=== PATIENT | female | born 1965 | race Caucasian/White ===

== ENCOUNTER → 2020-03-30 | Outpatient (CLI) | payer OTHER ==
--- NOTE | 2020-03-30 10:09 | RADIOLOGY REPORT (SQ) ---
EXAM DESCRIPTION: CT CHEST WITH IMAGES COMPLETED DATE/TIME: 03/30/2020 9:03 am REASON FOR STUDY: C50.411 MALIG NEOPLM OF UPPER-OUTER QUADRANT OF RIGHT FEMALE BREAST C50.411 MALIG NEOPLM OF UPPER-OUTER QUADRANT OF RIGHT FEMALE COMPARISON: None. TECHNIQUE: CT scan of the chest performed using helical scanning technique with dynamic intravenous contrast injection. Images reviewed with lung, soft tissue and bone windows. Reconstructed coronal and sagittal MPR and MIP images reviewed. All images stored on PACS. All CT scanners at this facility use dose modulation, iterative reconstruction, and/or weight based d osing when appropriate to reduce radiation dose to as low as reasonably achievable (ALARA). [facility]: Dose Right [facility]: CareDose [facility]: Dose Right [facility]: Teradose 4D [facility]: Smart Hi-Midia RENAL FUNCTION: GFR 59. RADIATION DOSE: CT Rad equipment meets quality standard of care and radiation dose reduction techniq ues were employed. CTDIvol: 4.5 - 5.9 mGy. DLP: 708 mGy-cm. . LIMITATIONS: None. FINDINGS: LUNGS AND PLEURA: Under image 60, cluster of small nodules measuring up to 4 mm in the rig ht upper lobe abutting the fissure. Image 64, 3 mm ground-glass nodule right upper lobe. Image 65 6 mm ground-glass nodule left upper lobe. Image 88, 5 mm part solid nodule in the middle lobe. No ef fusion. HILAR AND MEDIASTINAL STRUCTURES: No identified masses or abnormal nodes. HEART AND VASCULAR STRUCTURES: No aneurysm or dissection. No central pulmonary emboli. No pericardi al effusion. HARDWARE: None in the chest. UPPER ABDOMEN: See separate report of the CT of the abdomen. THYROID AND OTHER SOFT TISSUES: Right axillary adenopathy, the largest measures 2.4 x 1.8 cm and cont ains a biopsy clip. Right lower outer quadrant breast nodule also containing a marker clip. BONES: No significant finding. OTHER: No other significant finding. IMPRESSION: 1. Right breast mass status post biopsy. Ipsilateral axillary adenopathy. 2. Several small pulmonary nodules, too small to biopsy or characterize by PET-CT. TECHNICAL DOCUMENTATION: JOB ID: [id number] Quality ID # 436: Final reports with documentation of one or more dose reduction techniques (e.g., Au tomated exposure control, adjustment of the mA and/or kV according to patient size, use of iterative reconstruction technique) 2010 [employer]- All Rights Reserved Reading location - IP/workstation name: [email or web address]
--- NOTE | 2020-03-30 10:15 | RADIOLOGY REPORT (SQ) ---
EXAM DESCRIPTION: CT ABD/PELVIS WITH IV ONLY IMAGES COMPLETED DATE/TIME: 03/30/2020 9:03 am REASON FOR STUDY: C50.411 MALIG NEOPLM OF UPPER-OUTER QUADRANT OF RIGHT FEMALE BREAST C50.411 MALIG NEOPLM OF UPPER-OUTER QUADRANT OF RIGHT FEMALE COMPARISON: None. TECHNIQUE: CT scan of the abdomen and pelvis performed using helical scanning technique with dynamic intravenous contrast injection. No oral contrast. Images reviewed with lung, soft tissue, and bone windows. Reconstructed coronal and sagittal MPR images reviewed. Delayed images for evaluation of the urinary system also acquired. All images stored on PACS. All CT scanners at this facility use dose modulation, iterative reconstruction, and/or weight based d osing when appropriate to reduce radiation dose to as low as reasonably achievable (ALARA). [facility]: Dose Right [facility]: CareDose [facility]: Dose Right [facility]: Teradose 4D [facility]: Sonarworks CONTRAST TYPE AND DOSE: contrast/concentration: Isovue 350.00 mmol/ml; Total Contrast Delivered: 66. 0 ml; Total Saline Delivered: 40.0 ml RENAL FUNCTION: GFR 59 RADIATION DOSE: . LIMITATIONS: None. FINDINGS: LOWER CHEST: See separate report of the CT of the chest. LIVER: Normal size. No masses. No dilated ducts. SPLEEN: Normal size. No focal lesions. PANCREAS: No masses. No significant calcifications. No adjacent inflammation or peripancreatic fluid collections. Pancreatic duct not dilated. GALLBLADDER: No identified stones by CT criteria. No inflammatory changes to suggest cholecystitis. ADRENAL GLANDS: No significant masses or asymmetry. RIGHT KIDNEY AND URETER: No solid masses. No significant calcifications. No hydronephrosis or hyd roureter. LEFT KIDNEY AND URETER: No solid masses. No significant calcifications. No hydronephrosis or hydr oureter. AORTA AND VESSELS: No aneurysm. No dissection. Renal arteries, SMA, celiac without stenosis. RETROPERITONEUM: No retroperitoneal adenopathy, hemorrhage or masses. BOWEL AND PERITONEAL CAVITY: No masses or inflammatory changes. No free fluid or peritoneal masses. APPENDIX: Normal. PELVIS: No mass. No free fluid. Normal bladder. ABDOMINAL WALL: No masses. No hernias. BONES: No significant or acute findings. OTHER: No other significant finding. IMPRESSION: No evidence of metastatic disease. TECHNICAL DOCUMENTATION: JOB ID: [id number] Quality ID # 436: Final reports with documentation of one or more dose reduction techniques (e.g., Au tomated exposure control, adjustment of the mA and/or kV according to patient size, use of iterative reconstruction technique) 2010 [employer]- All Rights Reserved Reading location - IP/workstation name: [email or web address]
--- NOTE | 2020-03-30 12:35 | RADIOLOGY REPORT (SQ) ---
EXAM DESCRIPTION: NM WHOLE BODY BONE SCAN IMAGES COMPLETED DATE/TIME: 03/30/2020 11:56 am REASON FOR STUDY: C50.411 MALIG NEOPLM OF UPPER-OUTER QUADRANT OF RIGHT FEMALE BREAST C50.411 MALIG NEOPLM OF UPPER-OUTER QUADRANT OF RIGHT FEMALE COMPARISON: CT the chest abdomen and pelvis 03/30/2020 RADIONUCLIDE AND DOSE: 20 millicuries Tc99m MDP. The route of agent administration: Intravenous. ADDITIONAL DRUGS AND DOSES: None. TECHNIQUE: Routine delayed images at 3 hours post radionuclide injection acquired of the bony skelet on including anterior and posterior whole-body projections and additional focused images as needed. LIMITATIONS: None. FINDINGS: BONES: Normal visualization without areas of photopenia or increased bony uptake of radiop harmaceutical. KIDNEYS: Symmetric excretion without obstruction. OTHER: No other significant finding. IMPRESSION: NORMAL BONE SCAN. COMMENT: Quality measure 147: Current bone scan is compared with any available plain radiographs, p rior bone scans, and CT/MRI. TECHNICAL DOCUMENTATION: JOB ID: [id number] 2010 [employer]- All Rights Reserved Reading location - IP/workstation name: [email or web address]
== END ==
LOC: RAD 08:27
PROVIDERS: ATTEND Internal Medicine Hematology & Oncology
DX: C50.411 Malignant neoplasm of upper-outer quadrant of right female breast (principal)
CPT/HCPCS: 78306; 71260; 74177; A9503; Q9969

== ENCOUNTER 2020-04-28 05:26 | Day surgery (SDC) | payer OTHER ==
[2020-04-25 11:53] LABS: HEMOGLOBIN 13.4 g/dL (12.0-15.5); MEAN CORPUSCULAR HEMOGLOBIN 30.1 pg (27.0-33.4); MEAN CORPUSCULAR HGB CONC 34.2 g/dL (32.0-36.0); MEAN CORPUSCULAR VOLUME 88 fl (80-97); PLATELET COUNT 261 10^3/uL (150-450); RED BLOOD COUNT 4.44 10^6/uL (3.72-5.28); RED CELL DISTRIBUTION WIDTH 13.1 % (11.5-14.0); WHITE BLOOD COUNT 3.9 10^3/uL (4.0-10.5)
--- NOTE | 2020-04-25 15:10 | RADIOLOGY REPORT (SQ) ---
EXAM DESCRIPTION: CHEST SINGLE VIEW IMAGES COMPLETED DATE/TIME: 04/25/2020 11:30 am REASON FOR STUDY: MALIG NEOPLM OF UPPER-OUTER QUADRANT OF RIGHT FEMALE BREAST COMPARISON: None. EXAM PARAMETERS: NUMBER OF VIEWS: One view. TECHNIQUE: Single frontal radiographic view of the chest acquired. RADIATION DOSE: NA LIMITATIONS: None. FINDINGS: LUNGS AND PLEURA: No opacities, masses or pneumothorax. No pleural effusion. MEDIASTINUM AND HILAR STRUCTURES: No masses. Contour normal. HEART AND VASCULAR STRUCTURES: Heart normal in size. Normal vasculature. BONES: No acute findings. HARDWARE: None in the chest. OTHER: No other significant finding. IMPRESSION: NO ACUTE RADIOGRAPHIC FINDING IN THE CHEST. TECHNICAL DOCUMENTATION: JOB ID: [id number] 2010 [employer]- All Rights Reserved Reading location - IP/workstation name: [email or web address]
[~2020-04-28 05:26] MED LIST: CEFAZOLIN 1 GM/D5W RTU 1 GM/50 ML RTUPB IV ONE
[2020-04-28] MEDS ORDERED: LIDOCAINE 0.5% INJ-PF (5 MG/ML) 50 ML SDV ONE (06:17)
[2020-04-28] MEDS ORDERED: MIDAZOLAM 2 MG/2 ML INJ ONE (06:18)
[2020-04-28] MEDS ORDERED: PROPOFOL INJ 200 MG/20 ML VIAL IV ONE (06:18)
[2020-04-28] MEDS ORDERED: ONDANSETRON HCL INJ/PF 4 MG/2 ML SDV ONE (06:18)
[2020-04-28] MEDS ORDERED: FENTANYL CITRATE INJ/PF 100 MCG/2 ML AMPUL ONE (06:18)
[2020-04-28] MEDS ORDERED: LIDOCAINE 1%/EPINEPHRINE INJ 20 ML VIAL ONE (07:06)
[2020-04-28] MEDS ORDERED: ONDANSETRON HCL INJ/PF 4 MG/2 ML SDV IV PRN (07:49)
[2020-04-28] MEDS ORDERED: MORPHINE SULFATE 10 MG/ML INJ IV PRN (07:49)
[2020-04-28] MEDS ORDERED: MEPERIDINE HCL/PF INJ 25 MG/1 ML DISP.SYRIN IV PRN (07:49)
[2020-04-28] MEDS ORDERED: PROMETHAZINE HCL INJ 25 MG/1 ML VIAL IV PRN ×2 (07:49)
[2020-04-28] MEDS ORDERED: FENTANYL CITRATE INJ/PF 100 MCG/2 ML AMPUL IV PRN ×3 (07:49)
[2020-04-28] MEDS ORDERED: DIPHENHYDRAMINE HCL 50 MG/ML VIAL IV PRN (07:49)
--- NOTE | 2020-04-28 08:24 | Discharge Summary ---
Discharge Summary (SDC) - Discharge Final Diagnosis: Metastatic triple positive breast cancer Date of Surgery: 04/28/20 Discharge Date: 04/28/20 Condition: Good Forms: ASU Anesthesia D/C Instruction, Discharge POC-Surgical Service Treatment or Instructions: May use catheter; may shower in 48 hours; take Motrin or Tylenol as needed pain. Follow-up with Dr. Rodrigez in 1 to 2 weeks Referrals: SINAN RODRIGEZ MD [ACTIVE STAFF] - Discharge Diet: As Tolerated Discharge Activity: Activity As Tolerated Home Care Assistance: None Needed Report the Following to Your Physician Immediately: Shortness of Breath, Increase in Pain, Fever over 101 Degrees
--- NOTE | 2020-04-28 08:37 | Operative Report ---
Operative Report DATE OF SURGERY: 04/28/20 PREOPERATIVE DIAGNOSIS: Static breast carcinoma, triple positive POSTOPERATIVE DIAGNOSIS: Same OPERATION: 1. Placement of left subclavian Ohejae-q-Pfhy catheter. 2. Use of intraoperative ultrasonography. 3. Intraoperative fluoroscopy interpretation SURGEON: SINAN MADDEN ANESTHESIA: LMAC TISSUE REMOVED OR ALTERED: Nothing COMPLICATIONS: None ESTIMATED BLOOD LOSS: Scant INTRAOPERATIVE FINDINGS: See below PROCEDURE: The patient was taken the preop holding her to the main operating room where LMAC anesthesia was induced. Arms were tucked at the patient's side, neck and chest wall prepped and draped sterile fashion. Surgical plan and surgical timeout were conducted. The left neck was scanned with a variable frequency linear transducer. Findings were significant for compressible, patent left internal jugular vein. The skin was anesthetized 1% plain lidocaine, jaleel made in the skin with 11 blade, and micro needle and wire threaded into the left internal jugular vein. A suitable site for placement of the port was chosen the left subclavian position. Skin was anesthetized 1% plain lidocaine. A 3 and half centimeter incision was made with a #15 blade, subcutaneous tissue opened large enough to accommodate a port single-chamber. The catheter then tunneled between the 2 incisions, trimmed the appropriate length, attached to the port with the plastic ring. Under fluoroscopic guidance, the microwire was switched over to a conventional guidewire, then the 9 Turkmen introducer sheath was threaded over the guidewire. The guidewire and dilator were removed, and the free catheter fragment threaded into the left internal jugular vein. Under fluoroscopic guidance, the strip away sheath was removed, leaving the cath in good position with the tip in the SVC-right atrial junction. There was no kinking of the catheter. The catheter was aspirated and flushed with heparinized saline. Hemostasis was excellent. Sponge and needle counts are correct. Wounds closed with 3-0 Vicryl, benzoin and Steri-Strips. Patient tolerated procedure well, taken recovery room stable condition.
--- NOTE | 2020-04-28 08:38 | RADIOLOGY REPORT (SQ) ---
EXAM DESCRIPTION: FLUORO/CV PLACEMENT IMAGES COMPLETED DATE/TIME: 04/28/2020 8:23 am REASON FOR STUDY: PORT PLACEMENT L-SIDE ASSISSTED USING FLUORO C50.411 MALIG NEOPLM OF UPPER-OUTER QUADRANT OF RIGHT FEMALE COMPARISON: None. FLUOROSCOPY TIME: 0.1 minutes Spot images saved to PACS. TECHNIQUE: Intra-operative images acquired during surgical procedure to evaluate progress. NUMBER OF IMAGES: 1 LIMITATIONS: None. FINDINGS: Fluoroscopy was provided for intraoperative procedure. Please refer to the operative repo rt for further discussion. IMPRESSION: IMAGE(S) OBTAINED DURING PROCEDURE. COMMENT: Quality ID 145: Final reports for procedures using fluoroscopy that document radiation exp osure indices, or exposure time and number of fluorographic images (if radiation exposure indices are not available) Please consult full operative report of the attending physician for description of the procedure. TECHNICAL DOCUMENTATION: JOB ID: [id number] 2010 [employer]- All Rights Reserved Reading location - IP/workstation name: [email or web address]
[2020-04-28 11:00] VITALS: BP 140/58
== END 2020-04-28 09:40 | disposition home or self-care (01) ==
LOC: OROUT 05:26
PROVIDERS: ATTEND Surgery
DX: C50.411 Malignant neoplasm of upper-outer quadrant of right female breast (principal); C79.89 Secondary malignant neoplasm of other specified sites; Z17.0 Estrogen receptor positive status [ER+]; F41.9 Anxiety disorder, unspecified; Z79.899 Other long term (current) drug therapy; Z03.818 Encounter for observation for suspected exposure to other biological agents ruled out
CPT/HCPCS: 36415; 85027; 87635; 71045; 77001; 00532; 36561; C1766; C1752; C1788; J2250; J0690; J3010; J3490 ×2; J2405; J2704; J1642; C9803; 532